=== PATIENT | female | born 1975 | race African-American/Black ===

== ENCOUNTER 2021-04-30 04:09 | Inpatient (IN) | payer OTHER ==
[2021-04-26 14:19] VITALS: BMI 36.8
[2021-04-30] MEDS ORDERED: CEFAZOLIN 2 GM/D5W 2 GM/50 ML ML IVPB ONE (06:40)
[2021-04-30] MEDS ORDERED: ceFAZolin SODIUM 1 GM VIAL ONE (06:44)
[2021-04-30] MEDS: PHENAZOPYRIDINE HCL 100 MG TABLET (FP) PO ONE (06:45)
[2021-04-30] MEDS ORDERED: ROCURONIUM BROMIDE 50 MG/5 ML SYRINGE ONE ×2 (07:07→08:22)
[2021-04-30] MEDS ORDERED: fentaNYL CITRATE 250 MCG/5 ML VIAL ONE ×2 (07:07→09:19)
[2021-04-30] MEDS ORDERED: PROPOFOL 20 ML ONE (07:08)
[2021-04-30] MEDS ORDERED: MIDAZOLAM HCL 2 MG/2 ML SINGLE DOSE VIAL ONE ×2 (07:08)
[2021-04-30 07:15] LABS: INR 0.91 (0.83-1.09); PROTHROMBIN TIME (PATIENT) 11.2 SEC (9.7-13.0)
[2021-04-30 07:18] LABS: ACTIVATED PTT 29.9 SECONDS (25.2-36.5)
[2021-04-30] MEDS ORDERED: BUPIVACAINE LIPOSOME/PF (EXPAREL) 266 MG/20 ML VIAL ONE (07:19)
[2021-04-30] MEDS ORDERED: BUPIVACAINE HCL/PF 0.5% (5MG/ML) 10 ML VIAL ONE (07:19)
[2021-04-30] MEDS ORDERED: SUCCINYLCHOLINE CHLORIDE 200 MG/10 ML SYRINGE ONE (08:02)
[2021-04-30] MEDS ORDERED: HYDROmorphone HCl 2 MG/ML VIAL ONE (08:19)
[2021-04-30] MEDS ORDERED: DEXAMETHASONE SOD PHOSPHATE 4 MG/1 ML VIAL ONE (09:28)
[2021-04-30] MEDS ORDERED: KETOROLAC TROMETHAMINE 30 MG/1 ML VIAL ONE (09:28)
[2021-04-30] MEDS ORDERED: NEOSTIGMINE METHYLSULFATE 0.5 MG/ML - 10 ML MDV ONE (09:51)
[2021-04-30] MEDS ORDERED: GLYCOPYRROLATE 0.2 MG/1 ML VIAL ONE (09:51)
[2021-04-30] MEDS ORDERED: PHENYLEPHRINE HCL 10 MG/1 ML SINGLE DOSE VIAL ONE (09:51)
[2021-04-30] MEDS ORDERED: ONDANSETRON 4 MG/2 ML VIAL IVPUSH PRN (11:04)
[2021-04-30] MEDS ORDERED: ACETAMINOPHEN 1000 MG/100 ML VIAL (NON FORMULARY) IVPB ONE ×2 (11:05→12:21)
[2021-04-30] MEDS ORDERED: LACTATED RINGERS SOLUTION 1,000 ML IV SCH (11:15)
[2021-04-30] MEDS ORDERED: ACETAMINOPHEN 325 MG TABLET (FP) PO PRN (11:32)
[2021-04-30] MEDS ORDERED: oxyCODONE HCL 5 MG TABLET PO PRN (11:49)
[2021-04-30] MEDS ORDERED: ACETAMINOPHEN INJECTION 100 ML IVPB ONE (12:13)
[2021-04-30] MEDS: KETOROLAC TROMETHAMINE 30 MG/1 ML VIAL IVPUSH SCH (17:09)
[2021-04-30] MEDS: CEFAZOLIN 2 GM/D5W 2 GM/50 ML ML IVPB SCH (17:14)
[2021-05-01] MEDS: KETOROLAC TROMETHAMINE 30 MG/1 ML VIAL IVPUSH SCH ×3 (02:11→17:18)
[2021-05-01] MEDS: CEFAZOLIN 2 GM/D5W 2 GM/50 ML ML IVPB SCH (02:12)
[2021-05-01] MEDS ORDERED: ACETAMINOPHEN 500 MG TABLET (FP) PO PRN (09:18)
[2021-05-01] MEDS: SIMETHICONE 80 MG TAB.CHEW (FP) PO SCH ×4 (10:00→20:48)
[2021-05-01] MEDS ORDERED: PATIENT'S OWN MEDICATION (NON-FORMULARY) (Losartan Potassium [Losartan Potassium] 100 MG T PO SCH (10:00)
[2021-05-01] MEDS ORDERED: ENOXAPARIN NA (PORCINE) 40 MG/0.4 ML DISP.SYRIN SQ SCH (10:00)
[2021-05-01] MEDS: LOSARTAN POTASSIUM 50 MG TABLET PO SCH (10:03)
[2021-05-01] MEDS: HYDROCHLOROTHIAZIDE 25 MG TABLET (FP) PO SCH (10:03)
[2021-05-01 11:52] LABS: BASO % 0.3 % (0-2.0); EOS % 0.3 % (0-4.5); HEMATOCRIT 31.6 % (32.4-45.2); HEMOGLOBIN 9.9 GM/dL (10.7-15.3); LYMPH % 31.6 % (8-40); MCHC 31.4 g/dl (32.0-36.0); MEAN CELL VOLUME 70.2 fl (80-96); MONO % 7.8 % (3.8-10.2); PLATELET COUNT 190 10^3/uL (134-434); RDW 15.5 % (11.6-15.6); WHITE BLOOD COUNT 8.6 K/mm3 (4.0-10.0)
[2021-05-01 12:08] LABS: CALCIUM 8.6 mg/dL (8.5-10.1)
[2021-05-01 12:09] LABS: BLOOD UREA NITROGEN 8.6 mg/dL (7-18)
[2021-05-01 12:12] LABS: CREATININE 0.9 mg/dL (0.55-1.3)
[2021-05-01] MEDS: ENOXAPARIN NA (PORCINE) 40 MG/0.4 ML DISP.SYRIN SQ SCH (17:17)
[2021-05-02] MEDS: KETOROLAC TROMETHAMINE 30 MG/1 ML VIAL IVPUSH SCH ×2 (01:34→09:36)
[2021-05-02] MEDS: SIMETHICONE 80 MG TAB.CHEW (FP) PO SCH ×3 (01:35→09:36)
[2021-05-02 08:13] LABS: BASO % 0.8 % (0-2.0); HEMATOCRIT 30.1 % (32.4-45.2); HEMOGLOBIN 9.7 GM/dL (10.7-15.3); LYMPH % 40.3 % (8-40); MCH 22.2 pg (25.7-33.7); MCHC 32.2 g/dl (32.0-36.0); MEAN CELL VOLUME 69.1 fl (80-96); MEAN PLT VOLUME 8.6 fl (7.5-11.1); MONO % 7.8 % (3.8-10.2); NEUT % 50.1 % (42.8-82.8); PLATELET COUNT 179 10^3/uL (134-434); RBC 4.35 M/mm3 (3.60-5.2); WHITE BLOOD COUNT 6.1 K/mm3 (4.0-10.0)
[2021-05-02 08:29] LABS: CALCIUM 8.5 mg/dL (8.5-10.1)
[2021-05-02 08:30] LABS: ALBUMIN 3.2 g/dl (3.4-5.0); BLOOD UREA NITROGEN 10.1 mg/dL (7-18)
[2021-05-02 08:32] LABS: CREATININE 0.5 mg/dL (0.55-1.3)
[2021-05-02 08:34] LABS: BILIRUBIN,TOTAL 0.6 mg/dL (0.2-1); TOT PROT 6.1 g/dl (6.4-8.2)
[2021-05-02] MEDS ORDERED: POTASSIUM CHLORIDE TABS 20 MEQ TABLET.ER (FP) PO ONE (09:15)
[2021-05-02] MEDS: ENOXAPARIN NA (PORCINE) 40 MG/0.4 ML DISP.SYRIN SQ SCH (09:36)
[2021-05-02 10:19] VITALS: TEMP 98.1
[2021-05-02 10:55] VITALS: BP 122/76; PULSE 86
[2021-05-02] MEDS: LOSARTAN POTASSIUM 50 MG TABLET PO SCH (10:57)
[2021-05-02] MEDS: HYDROCHLOROTHIAZIDE 25 MG TABLET (FP) PO SCH (10:57)
== END 2021-05-02 01:30 | disposition home or self-care (01) | DRG 743 ==
LOC: JASUSAT 04:09 → J3W 13:58 → JASUSAT 05-01 00:19
PROVIDERS: ADMIT Obstetrics & Gynecology; ATTEND Obstetrics & Gynecology
PROC: 0UJD4ZZ Inspection of Uterus and Cervix, Percutaneous Endoscopic Approach (ICD-10-PCS; 2021-04-30)
PROC: 0UT70ZZ Resection of Bilateral Fallopian Tubes, Open Approach (ICD-10-PCS; 2021-04-30)
PROC: 0UB10ZZ Excision of Left Ovary, Open Approach (ICD-10-PCS; 2021-04-30)
PROC: 8E0W0CZ Robotic Assisted Procedure of Trunk Region, Open Approach (ICD-10-PCS; 2021-04-30)
PROC: 0UT90ZZ Resection of Uterus, Open Approach (ICD-10-PCS; principal; 2021-04-30 07:30)
DX: D25.9 Leiomyoma of uterus, unspecified (principal); Z30.2 Encounter for sterilization; N92.0 Excessive and frequent menstruation with regular cycle; R10.2 Pelvic and perineal pain; D64.9 Anemia, unspecified; I10 Essential (primary) hypertension; Z53.31 Laparoscopic surgical procedure converted to open procedure; N83.202 Unspecified ovarian cyst, left side
CPT/HCPCS: 36415; 74018-TC-FY; 80048; 80053; 81025; 85025; 85610; 85730; 86850; 86900; 86901; 88302-TC; 88304-TC; 88307-TC; 94010; 94760; J0131

== ENCOUNTER 2022-04-03 07:43 | Observation (INO) | payer OTHER ==
[2022-04-03 09:03] VITALS: BMI 36.6
[2022-04-03 09:37] LABS: BASO % 0.5 % (0-2.0); EOS % 0.5 % (0-4.5); HEMATOCRIT 37.8 % (32.4-45.2); LYMPH % 24.1 % (8-40); MCH 22.3 pg (25.7-33.7); MCHC 31.7 g/dl (32.0-36.0); MEAN CELL VOLUME 70.3 fl (80-96); MEAN PLT VOLUME 9.7 fl (7.5-11.1); NEUT % 68.9 % (42.8-82.8); PLATELET COUNT 173 10^3/uL (134-434); RBC 5.37 M/mm3 (3.60-5.2); RDW 16.1 % (11.6-15.6); WHITE BLOOD COUNT 5.7 K/mm3 (4.0-10.0)
[2022-04-03 11:52] LABS: ALBUMIN 3.5 g/dl (3.4-5.0); CALCIUM 7.7 mg/dL (8.5-10.1); CHLORIDE 95 mmol/L (98-107); CO2 19 mmol/L (21-32); CREATININE 0.8 mg/dL (0.55-1.3); GLUCOSE,RANDOM 180 mg/dL (74-106); TOT PROT 10.4 g/dl (6.4-8.2)
[2022-04-03 12:06] LABS: CHLORIDE 102 mmol/L (98-107); SODIUM 138 mmol/L (136-145)
[2022-04-03 12:07] LABS: ALBUMIN 3.6 g/dl (3.4-5.0); ANION GAP 8 MMOL/L (8-16); BLOOD UREA NITROGEN 9.9 mg/dL (7-18); CO2 28 mmol/L (21-32); GLUCOSE,RANDOM 146 mg/dL (74-106)
[2022-04-03 12:10] LABS: SGPT/ALT 56 U/L (13-61)
[2022-04-03 12:12] LABS: BILIRUBIN,TOTAL 0.9 mg/dL (0.2-1); CREATININE 0.7 mg/dL (0.55-1.3); SGOT/AST 40 U/L (15-37)
[2022-04-03 12:13] LABS: ALK PHOS 53 U/L (45-117)
[2022-04-03] MEDS ORDERED: ASPIRIN 81 MG CHEWABLE TABLETS PO ONE (12:18)
[2022-04-03 12:28] LABS: TOT PROT 7.2 g/dl (6.4-8.2)
[2022-04-03] MEDS ORDERED: ASPIRIN 81 MG CHEWABLE TABLETS ONE (12:52)
[2022-04-03 13:02] LABS: CHOLESTEROL 167 mg/dL (50-200); TRIGLYCERIDES 89 mg/dL (0-150)
[2022-04-03 13:03] LABS: LDL CHOLESTEROL (ONLY SJRH) 103 mg/dL (5-100)
[2022-04-03 13:05] LABS: HDL CHOLESTEROL 50 mg/dL (40-60)
[2022-04-03] MEDS ORDERED: MAG HYDROX/AL HYDROX/SIMETH 30 ML UNIT-DOSE CUP PO ONE (21:53)
[2022-04-03] MEDS ORDERED: FAMOTIDINE 20 MG TABLET PO ONE (21:53)
[2022-04-03] MEDS ORDERED: ACETAMINOPHEN 325 MG TABLET (FP) PO PRN (21:53)
[2022-04-03] MEDS ORDERED: MAG HYDROX/AL HYDROX/SIMETH 30 ML UNIT-DOSE CUP ONE (22:09)
[2022-04-03] MEDS ORDERED: FAMOTIDINE 20 MG TABLET ONE (22:09)
[2022-04-04 08:46] LABS: HEMATOCRIT 37.4 % (32.4-45.2); HEMOGLOBIN 11.9 GM/dL (10.7-15.3); LYMPH % 52.4 % (8-40); MCHC 31.7 g/dl (32.0-36.0); MEAN CELL VOLUME 69.2 fl (80-96); MEAN PLT VOLUME 9.3 fl (7.5-11.1); MONO % 5.6 % (3.8-10.2); PLATELET COUNT 193 10^3/uL (134-434); RDW 15.8 % (11.6-15.6); WHITE BLOOD COUNT 4.6 K/mm3 (4.0-10.0)
[2022-04-04 08:47] LABS: ALBUMIN 3.5 g/dl (3.4-5.0); BLOOD UREA NITROGEN 9.9 mg/dL (7-18); CALCIUM 8.9 mg/dL (8.5-10.1); MAGNESIUM 2.2 mg/dL (1.8-2.4)
[2022-04-04 08:50] LABS: CREATININE 0.7 mg/dL (0.55-1.3); PHOSPHOROUS 3.2 mg/dL (2.5-4.9)
[2022-04-04 08:52] LABS: BILIRUBIN,TOTAL 0.8 mg/dL (0.2-1); TOT PROT 6.9 g/dl (6.4-8.2)
[2022-04-04] MEDS ORDERED: HYDROCHLOROTHIAZIDE 25 MG TABLET (FP) PO SCH (10:00)
[2022-04-04] MEDS ORDERED: ENOXAPARIN NA (PORCINE) 40 MG/0.4 ML DISP.SYRIN SQ SCH (10:00)
[2022-04-04] MEDS ORDERED: ASPIRIN COATED 81 MG TABLET.EC PO SCH (10:00)
[2022-04-04] MEDS ORDERED: LOSARTAN POTASSIUM 50 MG TABLET PO SCH (10:00)
[2022-04-04 10:51] LABS: ANISOCYTOSIS 2+; MACROCYTOSIS 0
[2022-04-04 18:32] VITALS: BP 141/97; PULSE 82; TEMP 98.9
== END 2022-04-04 20:26 | disposition home or self-care (01) ==
LOC: JER 07:43 → JERBED 12:29 → J4W 04-04 05:28
PROVIDERS: ADMIT Internal Medicine
PROC: 3E023GC Introduction of Other Therapeutic Substance into Muscle, Percutaneous Approach (ICD-10-PCS; principal; 2022-04-03)
DX: R00.2 Palpitations (principal); I10 Essential (primary) hypertension; R77.8 Other specified abnormalities of plasma proteins; E66.8 Other obesity; Z68.36 Body mass index [BMI] 36.0-36.9, adult; R55 Syncope and collapse
CPT/HCPCS: 0241U-QW; 36415; 71045-TC-FY; 80053; 80061; 83735; 84100; 84443; 84484; 84703; 85025; 93005; 93010; 93306-TC; 96372; 99285-25; G0378